=== PATIENT | female | born 1960 | race Caucasian/White ===

== ENCOUNTER 2017-12-12 11:38 | Emergency (ER) | payer OTHER ==
--- NOTE | 2017-12-12 11:50 | Emergency Department Record ---
History of Present Illness - General Chief Complaint: Dizziness Stated Complaint: DIZZINESS Time Seen by Provider: 12/12/17 11:49 Source: Patient Mode of Arrival: Ambulatory Limitations: No limitations - History of Present Illness Initial Comments: The patient is here due to multiple episodes of lightheadedness this AM. She was at work when she slowly felt lightheaded and developed tunnel vision. She put her head between her legs and the symptoms improved. She then had another episode at work and then proceeded to drive home. At that point her brought her to the due to the complaints. The patient did have some tunnel vision at one point with the first episode. Now she is only complaining of tingling over her entire body for the last hour. She denies any arm or leg weakness, room spinning, unusual NICOLE, visual changes, or speech difficulties. MD Complaint: Dizziness, Lightheadedness Onset/Timin -: Hour(s) Timing: Gradual onset Description: Lightheadedness History of Same: No History of Trauma: No Severity: Mild - Related Data Home Medications Medication Instructions Recorded Confirmed Last Taken Aspirin [Aspir-Low] 81 mg PO DAILY 12/12/17 12/12/17 12/12/17 Indomethacin [Indocin] 50 mg PO ASDIR 12/12/17 12/12/17 12/12/17 Lisinopril/Hydrochlorothiazide 1 each PO DAILY 12/12/17 12/12/17 12/12/17 [Zestoretic 20-25 mg Tablet] Valacyclovir HCl [Valtrex] 500 mg PO DAILY 12/12/17 12/12/17 12/12/17 Allergies Allergy/AdvReac Type Severity Reaction Status Date / Time Penicillins Allergy DIFFICULTY Verified 12/12/17 11:51 BREATHING tetracycline AdvReac RASH Verified 12/12/17 11:51 Review of Systems Constitutional: Denies: Chills, Fever Eyes: Denies: Eye discharge ENT: Denies: Congestion Respiratory: Denies: Cough, Dyspnea Past Medical History - SOCIAL HISTORY Smoking Status: Former smoker Alcohol Use: None Drug Use: None - RESPIRATORY Hx Respiratory Disorders: No - CARDIOVASCULAR Hx Cardio Disorders: Yes Hx Hypertension: Yes - NEURO Hx Neuro Disorders: Yes Hx of Migraines: Yes - GI Hx GI Disorders: No Physical Exam - General General Appearance: Alert, Oriented x3, Cooperative, No acute distress (The patient appears very healthy and nontoxic.) - Head Head exam: Atraumatic, Normocephalic, Normal inspection - Eye Eye exam: Normal appearance, PERRL, EOMI - ENT Throat exam: Normal inspection. negative: Tonsillar erythema, Tonsillar exudate - Neck Neck exam: Normal inspection, Full ROM. negative: Lymphadenopathy, Meningismus , Tenderness - Respiratory Respiratory exam: Normal lung sounds bilaterally. negative: Respiratory distress - Cardiovascular Cardiovascular Exam: Regular rate, Normal rhythm, Normal heart sounds - GI/Abdominal GI/Abdominal exam: Soft, Normal bowel sounds. negative: Tenderness - Extremities Extremities exam: Normal inspection, Full ROM, Normal capillary refill. negative: Tenderness - Neurological Neurological exam: Alert, Normal gait, Oriented X3, Reflexes normal, Other ( There is a neg Drift and Rhomberg exams.). negative: Abnormal gait, Altered, Motor sensory deficit Course - Reevaluation(s) Reevaluation #1: The patient is doing very well at this time. She feels completely back to normal. There has been no CP, SOB, visual changes or NICOLE. She is up walking with a normal gait and balance. I did explain to the patient that the workup has all been neg and she is to see her PCP next week for recheck. 12/12/17 13:17 Medical Decision Making - Data Complexity MDM Data: Labs Ordered and/or Reviewed, X-Ray Ordered and/or Reviewed, EKG Ordered and/or Reviewed - Lab Data Result diagrams: 12/12/17 12:15 12/12/17 12:15 - EKG Data -: EKG Interpreted by Me EKG: No Acute Changes, Normal EKG - Radiology Data Radiology results: Report reviewed (Head CT; Neg for acute changes.) Disposition Disposition: Discharge Clinical Impression: Dizziness Disposition: Home, Self-Care Condition: (2) Stable Instructions: Dizziness (ED) Additional Instructions: Please continue your regular medicines and see your family doctor later this week or next week for recheck. Return to the ER for any worsening symptoms, or any weakness, trouble talking, visual changes or chest pain. Forms: Patient Portal Access Time of Disposition: 13:19 Quality - Quality Measures Quality Measures: N/A - Blood Pressure Screening View Details: Yes Does Patient Have Any of the Following: No Blood Pressure Classification: Pre-Hypertensive BP Reading Systolic Measurement: 125 Diastolic Measurement: 76 Screening for High Blood Pressure: < Pre-Hypertensive BP, F/U Documented > [ [id number]] Pre-Hypertensive Follow-up Interventions: Referral to alternative/primary care provider.
[2017-12-12 12:19] LABS: BASO % 0.4 % (0-6); EOS % 0.9 % (0-6); GRAN % 71.3 % (47-80); HEMATOCRIT 40.3 % (35.0-47.0); HEMOGLOBIN 13.4 gm/dl (11.6-16.0); MEAN CELL VOLUME 93.5 fl (81-97); MEAN CORPUSCULAR HEMOGLOBIN 31.1 pg (27-33); MEAN CORPUSCULAR HGB CONC 33.3 g/dl (32-36); MONO % 8.4 % (0-9); PLATELET COUNT 295 K/uL (130-400); RED BLOOD COUNT 4.31 M/uL (3.80-5.40); RED CELL DISTRIBUTION WIDTH 12.9 % (11.5-14.5); WHITE BLOOD COUNT W/O DIFF 6.9 K/uL (4.2-12.2)
[2017-12-12 12:29] LABS: BLOOD UREA NITROGEN 14 mg/dL (6-20); CREATININE 0.7 mg/dL (0.5-0.9); EST GLOMERULAR FILTRATION RATE > 60 mL/min
[2017-12-12 12:30] LABS: TOTAL PROTEIN 6.8 g/dL (6.6-8.7)
[2017-12-12 12:32] LABS: GLUCOSE,RANDOM 119 mg/dL (74-109)
[2017-12-12 12:34] LABS: ALB/GLOB RATIO 1.7 (1.1-1.8); ALBUMIN 4.3 g/dL (4.0-5.0); ALKALINE PHOSPHATASE 46 U/L (35-104); ALT/SGPT 17 U/L (<33); AST/SGOT 18 U/L (10.0-35.0)
[2017-12-12 12:35] LABS: CREATINE PHOSPHOKINASE 96 U/L (26-192)
[2017-12-12 12:36] LABS: CKMB 3.7 ng/mL (<3.77)
--- NOTE | 2017-12-14 13:05 | CT SCAN REPORT ---
EXAM: CT SCAN HEAD WO CONTRAST HISTORY: THREE EPISODES OF VERTIGO SINCE 9:00 A.M. TODAY. HEARING IMPLANT. TECHNIQUE: Axial CT scan of the head performed without IV contrast. COMPARISON: None. FINDINGS: There is a prominent metallic density along the right occipital bone posterior to the right external ear, which is presumably a bone-anchored hearing implant. This creates some metallic streak artifact at the levels of the implant. No definite acute intracranial hemorrhage evident. Mild generalized atrophy. No focal mass effect or midline shift evident. Extremely tiny round hyperdensity near the roof of the third ventricle may just be a small choroid plexus calcification although an extremely tiny colloid cyst would give a similar appearance. No depressed calvarial fracture is evident. Spina bifida of C1 posteriorly incidentally noted, a developmental variant. Minnie bullosa formation in the left middle turbinate. IMPRESSION: 1. NO ACUTE INTRACRANIAL HEMORRHAGE OR FOCAL MASS EFFECT EVIDENT. 2. METALLIC DENSITY ALONG THE RIGHT OCCIPITAL BONE IS PRESUMABLY A BONE- ANCHORED HEARING AID. 3. TINY ROUND HYPERDENSITY ALONG THE ANTERIOR ASPECT OF THE THIRD VENTRICLE MAY BE A VERY TINY COLLOID CYST. JOB NUMBER: [id number] [facility]
== END 2017-12-12 13:30 | disposition home or self-care (01) ==
LOC: ER 11:38
DX: R42 Dizziness and giddiness (principal); R20.0 Anesthesia of skin; I10 Essential (primary) hypertension; F17.210 Nicotine dependence, cigarettes, uncomplicated
CPT/HCPCS: 70450; 80053; 82550; 82553; 84484; 85025; 93005; 93010; 99284